=== PATIENT | female | born 1995 | race Caucasian/White ===

== ENCOUNTER 2024-04-29 16:11 | Emergency (ER) | payer MEDICAID ==
[~2024-04-29] VITALS: Ht 165.1 cm; Wt 81.6 kg
[2024-04-29 16:17] VITALS: O2SAT 99
[2024-04-29] MEDS: LACTATED RINGERS 1,000 ML IV SCH (16:22)
[2024-04-29] MEDS: MAGNESIUM 4 G PREMIX 100 ML IV ONE (16:28)
[2024-04-29 16:41] LABS: CHLORIDE 105 mEq/L (98-107); SODIUM 135 mEq/L (136-145)
[2024-04-29 16:42] LABS: CALCIUM 8.3 mg/dL (8.7-10.4); CARBON DIOXIDE 17 mEq/L (21-32)
[2024-04-29 16:47] LABS: CREATININE 1.5 mg/dL (0.6-1.0); GLUCOSE 110 mg/dL (70-105); UREA NITROGEN BLOOD 20 mg/dL (9-23)
[2024-04-29 16:49] LABS: ALANINE AMINOTRANSFERASE 24 IU/L (10-49); ALBUMIN 3.2 g/dL (3.2-4.8); ASPARTATE AMINOTRANSFERASE 47 IU/L (<34); BILIRUBIN DIRECT 0.3 mg/dL (<=3.0)
[2024-04-29 16:50] LABS: BILIRUBIN TOTAL 0.9 mg/dL (0.1-1.0); PROTEIN TOTAL 6.1 g/dL (6.0-8.3)
[2024-04-29] MEDS: MAGNESIUM 2 G PREMIX 50 ML IV ONE ×2 (16:53→18:22)
[2024-04-29] MEDS: LABETALOL 5MG/ML 4ML INJ IV ONE ×2 (16:56→18:21)
[2024-04-29 16:58] LABS: BASOPHILS % 0.7 % (0.0-2.0); DIFFERENTIAL COMMENT 0; EOSINOPHILS % 0.1 % (0.0-5.0); HEMATOCRIT. 25.9 % (36.0-48.0); HEMOGLOBIN. 8.2 g/dL (12.0-16.0); LYMPHOCYTES % 13.7 % (20.0-50.0); MEAN CORPUSCULAR HEMOGLOBIN 23.5 pg (28.0-32.0); MEAN CORPUSCULAR HGB CONC 31.5 g/dL (31.0-37.0); MEAN CORPUSCULAR VOLUME 74.6 fL (81.0-99.0); MEAN PLATELET VOLUME 8.4 fl (7.4-10.4); MONOCYTES % 3.5 % (2.0-8.0); PLATELET 426 x1000/uL (130-400); RED BLOOD CELL COUNT 3.47 mill/uL (4.2-5.4); RED CELL DISTRIBUTION WIDTH 16.1 % (11.6-14.6)
[2024-04-29 17:02] LABS: INR 0.9; PARTIAL THROMBOPLASTIN TIME 24.2 sec (23.4-31.0); PROTHROMBIN TIME 10.2 sec (9.6-11.0)
[2024-04-29 17:39] LABS: LACTATE DEHYDROGENASE 405 IU/L (120-246)
[2024-04-29 17:40] LABS: PHOSPHORUS 3.9 mg/dL (2.5-4.9)
[2024-04-29 17:53] LABS: ETHANOL BLOOD < 10 mg/dL (<10)
[2024-04-29 18:15] LABS: *AMPHETAMINES SCREEN URINE PRESUMPTIVE POSITIVE (NEGATIVE)
[2024-04-29 18:16] LABS: *BARBITURATES SCREEN URINE NEGATIVE (NEGATIVE); *BENZODIAZEPINES SCREEN URINE NEGATIVE (NEGATIVE); *COCAINE SCREEN URINE NEGATIVE (NEGATIVE); CANNABINOID URINE SCREEN NEGATIVE (NEGATIVE); ECSTASY MDMA SCREEN URINE CONF.TEST INDICATED (NEGATIVE); METHADONE URINE SCREEN NEGATIVE (NEGATIVE); OPIATES URINE SCREEN NEGATIVE (NEGATIVE); PHENCYCLIDINE URINE SCREEN NEGATIVE (NEGATIVE)
[2024-04-29 18:20] VITALS: BP 152/97; PULSE 100; RESP 19; TEMP 36.9; O2SAT 95
[2024-04-29 18:25] LABS: CLARITY URINE CLOUDY (CLEAR); COLOR URINE DARK YELLOW (YELLOW); GLUCOSE URINE NEGATIVE (NEGATIVE); KETONES URINE NEGATIVE (NEGATIVE); LEUKOCYTE ESTERASE URINE 1+ (NEGATIVE); NITRITE URINE POSITIVE (NEGATIVE); OCCULT BLOOD URINE 3+ (NEGATIVE); PH URINE 5.5 (4.5-8.0); PROTEIN URINE 4+ (NEGATIVE); SPECIFIC GRAVITY URINE 1.031 (1.005-1.030)
[2024-04-29 19:03] LABS: SQUAMOUS EPITHELIAL CELL URINE 1+ /lpf (RARE/1+)
[2024-04-29 19:05] LABS: BACTERIA URINE 2+; YEAST URINE NONE SEEN
== END 2024-04-29 18:26 | disposition short-term general hospital (02) ==
LOC: ER 16:11
DX: O62.4 Hypertonic, incoordinate, and prolonged uterine contractions (principal); O26.833 Pregnancy related renal disease, third trimester; O26.893 Other specified pregnancy related conditions, third trimester; O14.93 Unspecified pre-eclampsia, third trimester; Z3A.39 39 weeks gestation of pregnancy
CPT/HCPCS: 80076; 80305; 80048; 81003; 80320; 83615; 83735; 84100; 85025; 85610; 85730; 86850; 86900; 86901; 36415; 76805; 96365; 96366; 96375; 99291; J3490; J3475 ×2; G0480